=== PATIENT | female | born 2000 | race Caucasian/White ===

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

== ENCOUNTER → 2022-01-30 14:15 | Outpatient (CLI) | payer OTHER, SELFPAY ==
[2022-01-30 15:29] LABS: Basophils # 0.1 K/mm3 (0-0.2); Basophils % 1.5 % (0.1-2.0); Eosinophils # 0.1 K/mm3 (0.0-0.4); Eosinophils % 1.8 % (0.1-12.0); Hematocrit 46.9 % (37.0-47.0); Hemoglobin 14.9 g/dL (12.2-16.2); Lymphocytes # 2.1 K/mm3 (0.7-4.5); Lymphocytes % 30.4 % (10-50); Mean Corpuscular HGB Conc 31.8 g/dL (31.8-35.4); Mean Corpuscular Hemoglobin 28.8 pg (27.0-31.2); Mean Corpuscular Volume 90.6 fl (81-99); Mean Platelet Volume 8.7 fl (7.4-10.4); Monocytes # 0.4 K/mm3 (0.1-1.0); Monocytes % 5.8 % (1.7-9.3); Neutrophils # 4.3 K/mm3 (1.8-7.8); Neutrophils % 60.5 % (37.0-80.0); Platelet Count 273 K/mm3 (142-424); Red Blood Count 5.18 M/mm3 (4.20-5.40); Red Cell Distribution Width 13.3 % (11.5-17.5)
[2022-01-30 16:02] LABS: Hemoglobin A1C 4.6 % (4.0-6.0)
[2022-01-30 16:31] LABS: Alanine Aminotransferase 17 U/L (12-78); Albumin Level 4.3 g/dl (3.5-5.0); Albumin/Globulin Ratio 1.7 (1.1-1.8); Alkaline Phosphatase 83 U/L (38-126); Anion Gap 15.2 mEq/L (5-15); Aspartate Amino Transferase 24 U/L (14-36); Bilirubin,Total 0.3 mg/dl (0.2-1.3); Blood Urea Nitrogen 8 mg/dl (7-17); Calcium 9.9 mg/dl (8.4-10.2); Carbon Dioxide 28 mmol/L (22.0-30.0); Chloride 101 mmol/L (98-107); Estimated Glomerular Filt Rate 108 ml/min (>60); GFR (African American) 130 ML/MIN (>60); Globulin 2.6 g/dL (1.3-3.2); Glucose 87 mg/dl (74-100); Potassium 4.2 mmoL/L (3.5-5.1); Sodium 140 mmol/L (136-145); Total Protein,Serum 6.9 g/dl (6.3-8.2)
[2022-01-30 16:43] LABS: Total Iron Binding Capacity 312 ug/dL (265-497)
[2022-01-30 16:50] LABS: Free Thyroxine Index 2.7 ug/dL (5.93-13.13); T4 (Thyroxine) 8.4 ug/dl (5.53-11.0); Triiodothryronine (T3) Uptake 32 % (23.5-40.5)
[2022-01-30 17:04] LABS: Thyroid Stimulating Hormone 2.34 uIU/mL (0.465-4.68)
[2022-01-30 17:20] LABS: Vitamin B12 401 pg/mL (239-931)
[2022-01-30 17:26] LABS: Iron 96 ug/dL (37-170)
[2022-02-01 08:32] LABS: Thyroid Peroxidase Antibodies <8 IU/mL (0-26)
[2022-02-10 10:10] LABS: 1,25 Dihydroxy Vitamin D 42 pg/mL (.); 1,25-Dihydroxy, Vitamin D-2 <10 pg/mL (.); 1,25-Dihydroxy, Vitamin D-3 40 pg/mL (.)
== END ==
PROVIDERS: PCP Family Medicine; Visit Provider Nurse Practitioner Psychiatric/Mental Health
DX: Z00.00 Encounter for general adult medical examination without abnormal findings (principal); Z79.899 Other long term (current) drug therapy; R53.83 Other fatigue
CPT/HCPCS: 36415; 80053; 82607; 82652; 83036; 83540; 83550; 84436; 84443; 84479; 85025; 86376

== ENCOUNTER 2022-11-03 09:30 | Emergency (ER) | payer OTHER, SELFPAY ==
[2022-11-03 09:35] VITALS: BP 150/87; PULSE 107; RESP 22; TEMP 37; O2SAT 99; BMI 27.9
[2022-11-03 09:57] LABS: UTC Strep Screen (Rapid) Negative (Negative)
--- NOTE | 2022-11-03 09:57 | EXP.UTC ---
Discharge Plan Disposition Patient Disposition: Home, Self-Care Condition: Good Prescriptions Prescriptions: New azithromycin [Zithromax Z-Oliver] 250 mg tablet See Rx Instructions .ROUTE .COMPLEX 5 Days Qty: 6 0RF Rx Instructions: For 250 mg dose pack: take 500 mg today (day 1), then 250 mg for 4 days (days 2-5) methylprednisolone [Medrol (Oliver)] 4 mg tablets,dose pack See Rx Instructions .Route .COMPLEX 6 Days Qty: 21 0RF Rx Instructions: taper pack; No Action hydroxyzine pamoate [Vistaril] 25 mg capsule See Rx Instructions PO QHS PRN (Reason: for sleep) Qty: 30 0RF Rx Instructions: take 1-2 capsules orally every day at bedtime PRN; sertraline [Zoloft] 100 mg tablet 100 mg PO DAILY Qty: 30 1RF Referrals Follow up/Referrals: Provider,Referral, MD [Primary Care Provider] - See instructions Activity Restrictions/Add. Instructions Additional Instructions/Restrictions: *Monitor Temp, Over the counter Motrin or Tylenol as directed/as needed Tylenol every 4 hours and Motrin every 6 hours (as long as your family doctor has told you that you can take it) for fever or pain. and straight to ER if unable to lower temp less than 101.0 after medication given *Warm salt water gargles may help to soothe the throat *Throat Lozenges? *Warm fluids like tea with honey may help to soothe the throat? *Sleep elevated *Humidifier/Vaporizer Your throat swab was sent for culture. Those results are typically sent to your primary care. Be sure to follow up in 2-3 days with your family doctor/primary care physician if no improvement so they can review those result and treat if necessary. If you don?t have a primary care doctor, I recommend you get one but in the mean time, you will have to return to a walk in clinic Follow up IMMEDIATELY for new or worsening symptoms or no Noticeable improvement over the next 48-72 hours. 911 for difficulty breathing or swallowing Clinical Impressions Clinical Impression: Pharyngitis Qualifiers: Pharyngitis/tonsillitis etiology: unspecified etiology Qualified Code(s): J02.9 - Acute pharyngitis, unspecified Instructions Patient Instructions: Sore Throat, Azithromycin Discharge ED Provider: Nicole Cavazos [facility] [place] HPI General Stated complaint: sore throat Mode of Arrival: Ambulatory Source of Information: Patient Limitations: No Limitations Time Seen by Provider: 11/03/22 09:57 Description of Symptoms (Recalled from Triage Doc. by RN): PATIENT C/O SORE THROAT, HEADACHE AND NAUSEA THAT STARTED LAST NIGHT HEENT Symptoms (Recalled from RN notes): Yes Resp Symptoms (Recalled from RN notes): No Skin Symptoms (Recalled from RN notes): No MS Symptoms (Recalled from RN notes): No Functional Status (Recalled from RN notes): WNL History of Present Illness Provider Complaint: Patient states that she started last night with sore throat, nasal congestion and headache States that she feels like she may have strep throat Related Data Previous Rx's Medication Instructions Recorded hydroxyzine pamoate 25 mg capsule See Rx Instructions PO QHS PRN for 05/28/22 (Vistaril) sleep #30 caps sertraline 100 mg tablet (Zoloft) 100 mg PO DAILY #30 tabs 05/28/22 azithromycin 250 mg tablet See Rx Instructions PO .COMPLEX 5 11/03/22 (Zithromax Z-Oliver) days #6 tabs methylprednisolone 4 mg tablets in See Rx Instructions .Route 11/03/22 a dose pack (Medrol (Oliver)) .COMPLEX 6 days #21 tabs Allergies Allergy/AdvReac Type Severity Reaction Status Date / Time No Known Allergies Allergy Verified 04/16/22 14:04 Worker's Comp Is this a Worker's Comp case?: No [facility] Disclaimer: The information contained in this section may have been updated after the patient was seen, as this information can be updated by other users. Medical History (Updated 11/03/22 @ 10:07 by Nicole Cavazos APRN) Generalized anxiety disorder Major depressive disorder
[2022-11-03 10:07] VITALS: BP 150/87; PULSE 107; RESP 22; TEMP 37; O2SAT 99
== END 2022-11-03 10:10 | disposition home or self-care (01) ==
PROVIDERS: Emergency Provider Nurse Practitioner
DX: J02.9 Acute pharyngitis, unspecified (principal); R51.9 Headache, unspecified; F17.290 Nicotine dependence, other tobacco product, uncomplicated; F41.1 Generalized anxiety disorder; F33.9 Major depressive disorder, recurrent, unspecified
CPT/HCPCS: 87880; 99212; 99214; G0463

== ENCOUNTER 2023-01-31 13:34 | Emergency (ER) | payer OTHER, SELFPAY ==
[2023-01-31 13:45] VITALS: BP 131/86; PULSE 84; RESP 18; TEMP 37.2; O2SAT 99; BMI 31.1
--- NOTE | 2023-01-31 13:55 | EXP.UTC ---
Discharge Plan Disposition Patient Disposition: Home, Self-Care Condition: Good Prescriptions Prescriptions: New amoxicillin 500 mg capsule 500 mg PO BID 10 Days Qty: 20 0RF Referrals Follow up/Referrals: Provider,Referral, MD [Primary Care Provider] - See instructions Activity Restrictions/Add. Instructions Additional Instructions/Restrictions: *Monitor Temp, Over the counter Motrin or Tylenol as directed/as needed Tylenol every 4 hours and Motrin every 6 hours (as long as your family doctor has told you that you can take it) for fever or pain. and straight to ER if unable to lower temp less than 101.0 after medication given *Warm salt water gargles may help to soothe the throat *Throat Lozenges? *Warm fluids like tea with honey may help to soothe the throat? *Sleep elevated *Humidifier/Vaporizer *If you did not take Penicillin shot or was unable to, start taking antibiotic immediately and make sure that you take it for the FULL length of time although you should start to feel better in 24-48 hours *change toothbrush and toothpaste 24-48 hours after starting to take antibiotics so you do not reinfect yourself Monitor Temp. Tylenol and/or Ibuprofen as needed. ER if fever is no less than 101 despite alternating Tylenol and Ibuprofen * Encourage fluids, water, Gatorade, powerade, pedialyte if /toddler/or child *Cold fluids, popsicles and ice cream may feel good on his throat Follow up IMMEDIATELY for new or worsening symptoms or no Noticeable improvement over the next 48-72 hours. 911 for difficulty breathing or swallowing Clinical Impressions Clinical Impression: Strep throat Instructions Patient Instructions: DI for Strep Throat, Strep Throat Discharge ED Provider: Nicole Cavazos [facility] [place] HPI General Stated complaint: sore throat, runny nose Mode of Arrival: Ambulatory Source of Information: Patient Limitations: No Limitations Time Seen by Provider: 01/31/23 13:55 Description of Symptoms (Recalled from Triage Doc. by RN): PATIENT C/O SORE THROAT, RUNNY NOSE, AND HEADACHE SINCE YESTERDAY HEENT Symptoms (Recalled from RN notes): Yes Resp Symptoms (Recalled from RN notes): No Skin Symptoms (Recalled from RN notes): No MS Symptoms (Recalled from RN notes): No Functional Status (Recalled from RN notes): WNL History of Present Illness Provider Complaint: Patient states that she started yesterday with sore throat, runny nose and headache States that she woke up this morning and noticed white patchy like area on her tonsils and her throat was hurting worse so she came in to get it checked Related Data Previous Rx's Medication Instructions Recorded amoxicillin 500 mg capsule 500 mg PO BID 10 days #20 caps 01/31/23 Allergies Allergy/AdvReac Type Severity Reaction Status Date / Time No Known Allergies Allergy Verified 04/16/22 14:04 Worker's Comp Is this a Worker's Comp case?: No [facility] Disclaimer: The information contained in this section may have been updated after the patient was seen, as this information can be updated by other users. Medical History (Updated 01/31/23 @ 14:01 by Nicole Cavazos APRN) Generalized anxiety disorder Major depressive disorder Family History (Updated 01/30/22 @ 15:46 by Bridgett Contreras APRN) Grandmother Hypertension Social History (Updated 01/30/22 @ 13:50 by Bridgett Contreras APRN) Smoking Status: Current every day smoker tobacco type: e-cigarettes second hand exposure: No alcohol intake: never counseling given: No substance use type: denies use counseling given: No current occupational status: employed Travel in the last 8 weeks: None adopted: No caregiver/support person: No foster care: No household members: family housing: house lives independently: No marital status: single number of children: 0 education level: high school service: No nursin
[2023-01-31 14:05] VITALS: BP 131/86; PULSE 84; RESP 18; TEMP 37.2; O2SAT 99
[2023-01-31 14:05] LABS: UTC Strep Screen (Rapid) Positive (Negative)
== END 2023-01-31 14:07 | disposition home or self-care (01) ==
PROVIDERS: Emergency Provider Nurse Practitioner
DX: J02.0 Streptococcal pharyngitis (principal); R09.81 Nasal congestion; R51.9 Headache, unspecified; R07.0 Pain in throat; F17.290 Nicotine dependence, other tobacco product, uncomplicated
CPT/HCPCS: 87880; 99212; 99214; G0463

== ENCOUNTER 2023-05-05 00:45 | Emergency (ER) | payer OTHER, SELFPAY ==
[2023-05-05 00:47] VITALS: BP 139/87; PULSE 99; RESP 20; TEMP 37.2; O2SAT 98; BMI 25.7
[2023-05-05] MEDS: ONDANSETRON 4MG ODT 4 MG SL (00:57)
--- NOTE | 2023-05-05 00:57 | HMH.EDGENADL ---
Discharge Plan Disposition Patient Disposition: Home, Self-Care Prescriptions Prescriptions: New ondansetron HCl 4 mg tablet 4 mg PO Q8H PRN (Reason: nausea and vomiting) 5 Days Qty: 30 0RF No Action amoxicillin 500 mg capsule 500 mg PO BID 10 Days Qty: 20 0RF Activity Restrictions/Add. Instructions Additional Instructions/Restrictions: Please follow-up with your primary care provider. Please return to the emergency department if you develop any new or worsening symptoms or become concerned for your health. Please take Zofran as needed for nausea vomiting. Please remain hydrated. Clinical Impressions Clinical Impression: Vomiting Qualifiers: Vomiting type: unspecified Nausea presence: with nausea Qualified Code(s): R11.2 - Nausea with vomiting, unspecified Diarrhea Qualifiers: Diarrhea type: presumed infectious Qualified Code(s): R19.7 - Diarrhea, unspecified Discharge ED Provider: Wiliam Rosas General Adult HPI General Stated complaint: Vomiting,Diarrhea,weakness,fever Time Seen by Provider: 05/05/23 00:54 History of Present Illness HPI narrative: 23-year-old female presents with nausea vomiting diarrhea and fever x 1 day. She reports no chance she could be . She denies any other significant past medical history. She reports that liquids will stay down for approximately 15 minutes and then she will vomit again. Vomiting and diarrhea is nonbloody. Patient denies any abdominal pain at rest. She reports her stomach hurts when she is actively vomiting. Related Data Previous Rx's Medication Instructions Recorded amoxicillin 500 mg capsule 500 mg PO BID 10 days #20 caps 01/31/23 ondansetron HCl 4 mg tablet 4 mg PO Q8H PRN nausea and 05/05/23 vomiting 5 days #30 tabs Allergies Allergy/AdvReac Type Severity Reaction Status Date / Time No Known Allergies Allergy Verified 04/16/22 14:04 [facility] Disclaimer: The information contained in this section may have been updated after the patient was seen, as this information can be updated by other users. Medical History (Updated 05/05/23 @ 00:56 by Wiliam Rosas MD) Generalized anxiety disorder Major depressive disorder Family History (Updated 01/30/22 @ 15:46 by Bridgtet Contreras APRN) Grandmother Hypertension Social History (Updated 01/30/22 @ 13:50 by Bridgett F Ben, [employer]) Smoking Status: Current every day smoker tobacco type: e-cigarettes second hand exposure: No alcohol intake: never counseling given: No substance use type: denies use counseling given: No current occupational status: employed Travel in the last 8 weeks: None adopted: No caregiver/support person: No foster care: No household members: family housing: house lives independently: No marital status: single number of children: 0 education level: high school service: No senior living: No 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 Hx Recent Travel: No caffeine: Yes physical activity: none jj/temple: None special jj needs: No working smoke detector in home: No (they were recently destroyed; getting new ones) fire extinguisher in home: Yes carbon monox detector in home: No firearms in home: No do you feel safe at home: Yes victim of physical abuse: No victim of emotional abuse: No victim of sexual abuse: No would you like helpful sources: No ROS Obtained: Yes All systems reviewed & no additional complaints except as documented Physical Exam General General appearance: alert and in no apparent distress Head Head exam: atraumatic and normocephalic Eye Eye exam: Present normal appearance, PERRL and EOMI ENT ENT exam: Present normal oropharynx, mucous membranes moist and normal external ear exam Neck Neck exam: Present normal inspection and full ROM Chest Chest inspection: Present normal inspection and symmetric chest wall rise; Absent tenderness Respiratory Respiratory exam: Present normal lung sounds bilaterally; Absent respiratory distress Cardiovascular Cardiovascular exam: Present regular rate and normal rhythm Abdominal Exam Abdominal exam: Present soft; Absent distention, tenderness or guarding Extremities Exam Extremities exam: Present normal inspection; Absent edema or joint swelling Back Exam Back exam: Present normal inspection; Absent tenderness Neurological Exam Neurological exam: Present alert and oriented X3; Absent motor sensory deficit Psychiatric Psychiatric exam: Present normal affect and normal mood Skin Skin exam: Present warm, dry and normal color Lymphatic Lymphatic Findings: no adenopathy Medical Decision Making Medical Records Medical records reviewed: Yes I reviewed the patient's medical records. Simeon Inquiry Pt receiving controlled substance: No Simeon was queried for this patient: No Lab Data Lab results reviewed: Yes I reviewed the patient's lab results. Orders (Tests/Meds): ED MEDICATIONS Generic Name Dose Route Start Last Admin Trade Name Freq PRN Reason Stop Dose Admin Ondansetron HCl 4 mg 05/05/23 00:54 Ondansetron 4mg Odt SL 05/05/23 00:55 ONCE ONE ORDERS Category Date Time Status Rapid PCR Covid and Flu A/B Stat Lab 05/05/23 00:54 Ordered Medical Decision Narrative: 23-year-old female without significant past medical history presents with 1 day of nausea vomiting and diarrhea. Differential diagnosis includes was not limited to flu, gastroenteritis, dehydration, intra-abdominal pathology. Patient has a benign exam including moist mucous membranes and no significant abdominal tenderness. Low concern for emergent pathology at this time. Patient given a dose of Zofran, COVID flu swab and discharged in stable condition. We will call her if it returns positive. Patient discharged with prescription for Zofran. Procedures Risk/Benefits of Procedure(s) Were Explained: Yes Critical Care Critical Care Time Critical Care Time: No
[2023-05-05 01:03] VITALS: BP 139/87; PULSE 94; RESP 20; TEMP 37.2; O2SAT 99
[2023-05-05 01:08] LABS: Coronavirus 19, PCR Not Detected (NotDetected); Influenza A, PCR Not Detected (NotDetected); Influenza B, PCR Not Detected (NotDetected)
== END 2023-05-05 01:03 | disposition home or self-care (01) ==
PROVIDERS: Emergency Provider Emergency Medicine
DX: R11.2 Nausea with vomiting, unspecified (principal); R19.7 Diarrhea, unspecified; R50.9 Fever, unspecified; F17.290 Nicotine dependence, other tobacco product, uncomplicated
CPT/HCPCS: 87636; 99283

== ENCOUNTER 2024-11-15 14:20 | Emergency (ER) | payer OTHER, SELFPAY ==
--- NOTE | 2024-11-15 15:12 | ED_ITS ---
<Statement entered by Gaston Benjamin MD - 11/15/24 19:33> I was consulted by the ALIYAH, and we discussed the complexity of the problems being addressed. I approve the treatment and management plan for this patient's care in the emergency department, thus performing a substantive portion of the medical decision making. Gaston Benjamni MD Discharge Plan Disposition Patient Disposition: Home, Self-Care Condition: Good Prescriptions Prescriptions: No Action ondansetron HCl 4 mg tablet 4 mg PO Q8H PRN (Reason: nausea and vomiting) 5 Days Qty: 30 0RF amoxicillin 500 mg capsule 500 mg PO BID 10 Days Qty: 20 0RF Referrals Follow up/Referrals: Provider,Referral, [Primary Care Provider, Medical] - See instructions Ras Pfeiffer DO [Staff Physician, Orthopedics] - See instructions Activity Restrictions/Add. Instructions Additional Instructions/Restrictions: You were evaluated on an emergency basis. It is very important that you follow- up with your primary care provider and any specialist who we discussed within the next 2 days in order to better assess your health more comprehensively. For example, incidental findings on imaging or laboratory results that were performed today may be discovered, which do not require immediate medical care, but may impact your health in the future. If your symptoms worsen or persist, please return to the emergency department immediately for reassessment. Take all medications as prescribed. In queue for allowing me to participate in your health care, and I hope you feel better soon. Clinical Impressions Clinical Impression: Acute pain of left knee Print Language Print Language: Guamanian Discharge ED Provider: Gaston Benjamin General Adult HPI General Chief complaint: PAIN Stated complaint: Pain in L Leg Time Seen by Provider: 11/15/24 15:12 History of Present Illness HPI narrative: 24-year-old female presents emergency department complaints of pain to her left knee for the past several days. Denies any known injury to the area but states she has been lifting weights recently. Reports approximately 5 years ago she did have her ACL and meniscus repaired on the same knee. She has not taken any medication for pain prior to arrival. Related Data Previous Rx's ?Medication ?Instructions ?Recorded amoxicillin 500 mg capsule 500 mg PO BID 10 days #20 c aps 01/31/23 ondansetron HCl 4 mg tablet 4 mg PO Q8H PRN nausea and 02/13/24 vomiting 5 days #30 tabs Allergies Allergy/AdvReac Type Severity Reaction Status Date / Time No Known Allergies Allergy Verified 04/16/22 14:04 [facility] Disclaimer: The information contained in this section may have been updated after the patient was seen, as this information can be updated by other users. Medical History (Updated 11/15/24 @ 16:37 by Zuleima Luna) Major depressive disorder Generalized anxiety disorder Family History (Updated 01/30/22 @ 15:46 by Bridgett Contreras APRN) Grandmother Hypertension Social History (Updated 01/30/22 @ 13:50 by Bridgett Contreras APRN) Smoking Status: Current every day smoker tobacco type: e-cigarettes second hand exposure: No alcohol intake: never counseling given: No substance use type: denies use counseling given: No current occupational status: employed Travel in the last 8 weeks?: None adopted: No caregiver/support person: No foster care: No household members: family housing: house lives independently: No marital status: single number of children: 0 education level: high school service: No skilled nursing: No 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 Hx Recent Travel: No caffeine: Yes physical activity: none jj/scientology: None special jj needs: No working smoke detector in home: No (they were recently destroyed; getting new ones) fire extinguisher in home: Yes carbon monox detector in home: No firearms in home: No do you feel safe at home: Yes victim of physical abuse: No victim of emotional abuse: No victim of sexual abuse: No would you like helpful sources: No Have you lived/traveled outside [place] in past 30 days?: No Contact w/someone who lives/traveled outside [place] past 30 days?: No Exposure to someone with infectious disease in past 14 days?: No Do you have a fever (greater than 100.4 F or 38 C)?: No Have you tested positive for COVID-19?: No Exposed to someone with COVID-19 in past 14 days?: No Do you have a sore throat?: No Do you have a cough?: No Do you have any weakness?: No Do you have any diarrhea?: No Are you experiencing any unusual bleeding?: No Do you have any muscle aches/pain?: No Do you have any abdominal pain?: No Are you experiencing loss of taste or smell?: No Other Medical History Have you received the Flu Vaccine for this season: Yes Have you received the Pneumonia Vaccine: No ROS Obtained: Yes All systems reviewed & no additional complaints except as documented Musculoskeletal Musculoskeletal: Reports arthralgias Physical Exam Narrative Physical exam: General: Awake, aware, in no acute distress HEENT: Normocephalic, no evidence of trauma CV: RRR, no murmurs, rubs, or gallops Pulm: CTA bilaterally with no rhonchi, rales, wheezes ABD: Nontender, no swelling, guarding, or rebound tenderness Psych, appropriate mood and affect Musculoskeletal: Sensations intact with 2+ pulses in all extremity. Also has 5 out of 5 strength in all extremities as well. Tenderness was noted on palpation to the medial aspect of patient's left knee. No erythema, ecchymosis, edema noted. General General appearance: alert Respiratory Respiratory exam: Present normal lung sounds bilaterally Cardiovascular Cardiovascular exam: Present regular rate Neurological Exam Neurological exam: Present alert Medical Decision Making Medical Records Screening: Per USPSTF and CDC recommendations, given the prevalence of disease in our region, it is our hospital?s policy to screen for HIV and viral Hepatitis for all patients aged 18 and over and those with ongoing risk factors. Simeon Inquiry Pt receiving controlled substance: No Vital Signs: 11/15/24 15:16 Temperature 99.5 F Temperature Source Oral Pulse Rate [Left Radial] 95 H Respiratory Rate 16 Blood Pressure [Right Arm] 121/68 Blood Pressure Mean [Right Arm] 85 02 Sat by Pulse Oximetry 100 Orders (Tests/Meds): ED MEDICATIONS Discontinued Medications Generic Name Dose Route Start Last Admin Trade Name Yasmanyq PRN Reason Stop Dose Admin Ibuprofen 600 mg 11/15/24 15:19 11/15/24 15:32 Ibuprofen 600 Mg Tablet PO 11/15/24 15:20 600 mg ONCE ONE Administration ORDERS Category Date Time Status Knee XR left 3 views [XR knee LT 3V] Stat Exams 11/15/24 15:19 Completed HIV Combo Stat Lab 11/15/24 15:19 Ordered Hepatitis C Ab Qual. W/ RFX Stat Lab 11/15/24 15:19 Ordered Medical Decision Narrative: Initial impression of presenting illness: 24-year-old female presents emergency department complaints of pain to her left knee for the past couple of days. She denies any known injury to the area but reports she did have ACL and meniscus repair of this knee approximately 5 years ago. She states she has been lifting weights more recently. Not take any medication for pain prior to arrival. Differential diagnosis includes but is not limited to: Ligament injury, musculoskeletal strain, arthritis, fracture Patient arrives hemodynamically stable, afebrile, without respiratory distress with vital signs interpreted by myself. Initial physical exam reveals tenderness on palpation to the medial aspect of patient's left knee. Sensations intact with 2+ pulses as well as 5 out of 5 strength. No erythema, ecchymosis, edema noted. Of exam is unremarkable Initial diagnostic plan: Ibuprofen for pain control, x-ray of left knee Results from initial plan were reviewed and interpreted by myself, pertinent positives include: X-ray of left knee was unremarkable for acute findings. Interventions in the ED: Patient was given ibuprofen for pain control. She was also fitted for a knee immobilizer to her left knee as well as crutches with crutch teaching performed by nursing staff. Patient was made aware of the results and the findings, upon reevaluation patient has remained stable throughout stay, symptoms remained stable. Upon reevaluation patient is resting comfortably in her room with no signs of acute distress. Disposition: Reviewed findings today's workup with patient informed no acute abnormalities were noted on her x-ray. Advised her to we will give her contact information for orthopedics and recommended that she follow-up outpatient for further evaluation of her pain. In the meantime I recommended patient continue to RICE the area and use the knee immobilizer and crutches as needed for comfort. Struck to her to return immediately to the emergency department any new or worsening symptoms. Patient was agreeable to plan of care. Patient made aware of findings and had a detailed discussion with symptomatic care and return precautions, patient voiced understanding. Critical Care Critical Care Time Critical Care Time: No
[2024-11-15 15:16] VITALS: BP 121/68; PULSE 95; RESP 16; TEMP 37.5; O2SAT 100; BMI 23.0
--- NOTE | 2024-11-15 15:19 | XR_ITS ---
FINAL REPORT CLINICAL HISTORY: pain without injury FINDINGS: AP, lateral and oblique views of the left knee were obtained. There is no prior exam for comparison. There are changes from ACL reconstruction. There is no acute osseous abnormality of the left knee. No dislocation. The joint space is preserved. The soft tissues are normal. There is no joint effusion. IMPRESSION: No acute osseous abnormality of the left knee. Reviewed, Interpreted and Dictated by Elda Burleson MD Transcribed by Bernice Carr Authenticated and [facility]
[2024-11-15] MEDS: IBUPROFEN 600 MG TABLET PO (15:32)
[2024-11-15 17:20] VITALS: BP 110/63; PULSE 90; RESP 17; TEMP 36.6; O2SAT 100
== END 2024-11-15 17:23 | disposition home or self-care (01) ==
PROVIDERS: Emergency Provider Student in an Organized Health Care Education/Training Program
DX: M25.562 Pain in left knee (principal); F17.200 Nicotine dependence, unspecified, uncomplicated
CPT/HCPCS: 73562; 99282; 99283